=== PATIENT | male | born 1955 | race Caucasian/White ===

== ENCOUNTER → 2017-02-20 | Day surgery (SDC) | payer BC ==
[~2017-02-20] MED LIST: LIORESAL10 MG PO; MOVANTIK25 MG PO; NORFLEX100 M1 PO; OXYCODONE-ACET1 EAC1 PO; OXYCONTIN30 MG PO; PERCOCET10 PO; ROXICODONE30 M1 PO
--- NOTE | ~2017-02-20 | OR ---
Unit #: [id number] #: [id number] Patient: MAXI SNYDER SR [id number] [address] [place], [place] [address] [id number] O MR#: [id number] NAME: MAXI SNYDER SR ROOM: Date of Procedure: 02/20/2017 Admission Date: 02/20/2017 Surgeon: Scott Virk M.D. : 1955 Attending Physician: Scott Virk M.D. Primary Care Physician: Mario Leal M.D. OPERATIVE REPORT PREOPERATIVE DIAGNOSES Back pain, degenerative disk disease, sacroiliac joint dysfunction, facet disease. POSTOPERATIVE DIAGNOSES Back pain, degenerative disk disease, sacroiliac joint dysfunction, facet disease. PROCEDURE PERFORMED Bilateral diagnostic and therapeutic sacroiliac joint injections with intravenous sedation and fluoroscopic guidance for needle localization. INDICATIONS FOR PROCEDURE The patient is a 61-year-old male with multilevel multifactorial degenerative change. He is not a good surgical candidate. He has failed rehabilitative treatment and medication management. Facet injections given him fairly good maintained improvement in his back pain. He has had some symptoms vascular diagnostic and therapeutic bilateral sacroiliac joint injection. Risks and benefits of all have been reviewed with the patient. DESCRIPTION OF PROCEDURE The patient was placed in a prone position. Standard monitors were applied. A 4 mg of Versed was given for sedation and anxiolysis, which were adequate. Vital signs remained stable. Sterile prep and drape then of the lumbosacral area was performed. The skin then overlying the midpoint of the right and left sacroiliac joints localized with 1% lidocaine. At each of these levels, a 22-gauge Quincke point spinal needle was advanced with fluoroscopic guidance. The needle was moved until it was felt into the sacroiliac joint. Position was then confirmed bilaterally with radiographic contrast and fluoroscopy. After confirming proper positioning, a dose of 5 mL of a mixture of 80 mg of Depo-Medrol and 9 mL of 0.25% bupivacaine were deposited in each of the joints. The needles were flushed and removed. The patient tolerated the procedure otherwise well and was discharged to the recovery room in stable condition. Dictated by... Scott Virk M.D. LHP/modl Unit #: [id number] #: [id number] Patient: MAXI SNYDER SR TD: 02/21/2017 01:54 JOB #: [id number] OPERATIVE REPORT Page 1 of 1 X Scott Virk MD X PROCEDURE OPERATIVE NOTE
== END | disposition home or self-care (01) ==
LOC: CCSC 07:08
DX: M53.3 Sacrococcygeal disorders, not elsewhere classified (principal)
CPT/HCPCS: J1040; J2250

== ENCOUNTER → 2017-04-29 | Day surgery (SDC) | payer BC ==
--- NOTE | ~2017-04-29 | OR ---
Unit #: [id number] #: [id number] Patient: MAXI SNYDER SR [id number] [address] [place], [place] [address] [id number] O MR#: [id number] NAME: MAXI SNYDER SR ROOM: Date of Procedure: 04/29/2017 Admission Date: 04/29/2017 Surgeon: Scott Virk M.D. : 1955 Attending Physician: Scott Virk M.D. Referring Physician: Scott Virk M.D. Primary Care Physician: Mario Leal M.D. OPERATIVE REPORT JOB NOTE: CC: [facility] PREOPERATIVE DIAGNOSES Back pain, degenerative facet disease, lumbar spondylosis. POSTOPERATIVE DIAGNOSES Back pain, degenerative facet disease, lumbar spondylosis. PROCEDURE PERFORMED Lumbar facet injection x3 levels bilaterally with intravenous sedation and fluoroscopic guidance for needle localization. INDICATIONS FOR PROCEDURE The patient is a 61-year-old male with significant facet disease at the L3-L4, L4-L5, L5-S1 levels. It is partially treated medically, but insufficient. He is a poor surgical candidate. He has done well for an average of 8 months with facet injections done bilaterally at the L3-L4, L4-L5, and L5-S1 levels. Few months ago, this request for trial of sacroiliac joints by his spine surgeon. We did that and only resulted in about a day of partial improvement. Based on history, pathology, symptomatology, and response to treatment, we are going to proceed with repeat facet injections today. DESCRIPTION OF PROCEDURE The patient was placed in a prone position. Standard monitors were applied. 4 mg of Versed were given for sedation and anxiolysis, which were adequate. Vital signs remained stable. Sterile prep and drape then of the lumbar area was performed. The skin overlying the left-sided L3-L4, L4-L5, and L5-S1 facet joints localized with 1% lidocaine. At each of these levels, a 22-gauge Quincke point spinal needle was advanced with fluoroscopic guidance to bring the edge of the respective facet joint. After this was confirmed with fluoroscopy, a dose of 1 mL of a mixture of 80 mg of Depo-Medrol and 2 mL of 0.25% bupivacaine were deposited. The needles were flushed and removed. The same procedure was then repeated on the right at the L3-L4, L4-L5, L5-S1 levels. Again, fluoroscopic guidance was used to confirm proper needle positioning in those respective facet joints. This was followed by a dose of 1 mL of a mixture of 80 mg Depo-Medrol and 2 mL of 0.25% bupivacaine. The needles were flushed and removed. The patient tolerated the entire procedure well and was discharged to the recovery room in stable condition. Unit #: [id number] #: [id number] Patient: MAXI SNYDER SR.. Tobi Grier/bren TD: 04/29/2017 17:31 JOB #: [id number] OPERATIVE REPORT Page 1 of 1 X Scott Virk MD X PROCEDURE OPERATIVE NOTE
== END | disposition home or self-care (01) ==
LOC: CCSC 07:35
DX: M47.896 Other spondylosis, lumbar region (principal); M51.37 Other intervertebral disc degeneration, lumbosacral region; M51.27 Other intervertebral disc displacement, lumbosacral region
CPT/HCPCS: J1040; J2250